=== PATIENT | male | born 1970 | race African-American/Black ===

== ENCOUNTER 2019-11-02 20:42 | Emergency (ER) | payer SELFPAY ==
[~2019-11-02] VITALS: Ht 182.9 cm; Wt 108.9 kg
[2019-11-02 20:45] VITALS: BP 154/84
--- NOTE | 2019-11-02 20:45 | NUR ---
ED Nurse Note: Patient brought into ED by BOBO RA 26 for c/o L shoulder pain. Per BOBO, patient was picked up on the street. Patient is breathing normal and unlabored and has no other complaints at this time. He is aaox4 and ambulatory with steady gait.
--- NOTE | 2019-11-02 20:45 | NUR ---
ED Nurse Note: Patient denies trauma or injury to his L arm/shoulder.
--- NOTE | 2019-11-02 21:18 | NUR ---
ED Nurse Note: Patient began making comments such as "I get bad vibes from you, you look mean and hate black people". Patient became paranoid and not cooperative.
--- NOTE | 2019-11-02 21:20 | NUR ---
ED Nurse Note: Patient refused blood draw by myself stating that I am a racist and I cannot draw his blood. notified.
--- NOTE | 2019-11-02 21:25 | NUR ---
ED Nurse Note: CHAUNCEY Rust came into room to assist with blood draw and as soon as patient saw CHAUNCEY Bergman he stated "Hell no, I'm out of here".
[2019-11-02 21:30] VITALS: BP 154/84
[2019-11-02] MEDS ORDERED: Aspirin Baby 81mg ORAL ONE (21:30)
--- NOTE | 2019-11-02 21:30 | NUR ---
ELOPEMENT: RN went to notify ERMSkylar that patient refused IV and blood draw by myself and CHAUNCEY Bergman again. Upon going back into patient's room, patient eloped. Patient did not speak with MD regarding risks of leaving the ED/ treatment plan. Patient aaox4 and ambulatory with steady gait. He was breathing normal and unlabored, no signs of acute distress.
--- NOTE | 2019-11-02 21:34 | Emergency Room Report ---
History of Present Illness General Chief Complaint: Upper Extremity Injury Source: Patient Present Illness HPI Patient is a 49-year-old male presented for increased left shoulder pain. Pain is worse with movement. Denies any prior history of cardiac disease. States that he felt like his heart was going somewhat fast. Denies any recent trauma. Onset of symptoms earlier in the day. Allergies: Coded Allergies: MORPHINE (Unverified Allergy, Unknown, 11/02/19) COVID-19 Screening Contact w/high risk pt: No Experienced COVID-19 symptoms?: No COVID-19 Testing performed LABORER PRESTRESSED CONCRETE: No Patient History Past Medical History: see triage record Reviewed Nursing Documentation: PMH: Agreed; PSxH: Agreed Nursing Documentation-PMH Hx Hypertension: Yes Hx Asthma: Yes History Of Psychiatric Problem: Yes - PARANOIA Review of Systems All Other Systems: negative except mentioned in HPI Physical Exam Vital Signs Date Time Temp Pulse Resp B/P (MAP) Pulse Ox O2 Delivery O2 Flow Rate FiO2 11/02/19 20:38 98.8 106 16 154/84 (107) 98 Room Air Sp02 EP Interpretation: reviewed, normal General Appearance: normal inspection, well appearing, no apparent distress, alert, GCS 15 Head: atraumatic ENT: normal ENT inspection, hearing grossly normal, normal voice Neck: normal inspection, full range of motion, supple, no bony tend Respiratory: normal inspection, lungs clear, normal breath sounds, no respiratory distress, no retraction, no wheezing Cardiovascular #1: regular rate, rhythm, no edema Gastrointestinal: normal inspection, normal bowel sounds, non tender, soft, no guarding, no hernia Genitourinary: no CVA tenderness Musculoskeletal: normal inspection, back normal, normal range of motion Neurologic: alert, motor strength/tone normal, ssas developer III-XII nml as tested, oriented x3, responsive, speech normal, normal inspection Psychiatric: normal inspection, judgement/insight normal, mood/affect normal Medical Decision Making Diagnostic Impression: Primary Impression: Shoulder pain, left ER Course Patient presented for shoulder pain. Differential diagnosis included but was not limited to acute coronary syndrome, arthritis, rotator cuff injury, dislocation among others. Because of patient's pain I felt that laboratory testing and EKG was indicated. EKG was performed and showed sinus tachycardia with nonspecific T wave changes. Patient refused laboratory testing and further work-up. He stated he wanted to leave immediately. Patient did not appear to be in acute distress. The patient was advised risk benefits alternatives of leaving AGAINST MEDICAL ADVICE and he indicated understanding and all questions are answered patient still continued want to leave and signed AGAINST MEDICAL ADVICE. Despite risks including but not limited to disability and worsening of current lifestyle. Patient agreed and wished to leave the hospital. Patient advised he could return at any time. This medical record is generated with [employer] branch operations manager software. There may be some branch operations manager discrepancies related to use of this software EKG Diagnostic Results Rate: tachycardiac - nsr 111 nonspecific twave changes Last Vital Signs Date Time Temp Pulse Resp B/P (MAP) Pulse Ox O2 Delivery O2 Flow Rate FiO2 11/02/19 20:38 98.8 106 16 154/84 (107) 98 Room Air Status: unchanged Disposition: AGAINST MEDICAL ADVICE Condition: Unknown Referrals: NOT CHOSEN IPA/,REFERRING (PCP) Tre Duarte MD Nov 02, 2019 21:34
--- NOTE | 2019-11-03 14:17 | Cardiology Report ---
APPROVED REPORT EKG Measurement Heart [id number] CT [id number] [id number] <Conclusion> Sinus tachycardia Nonspecific T wave abnormality Abnormal ECG
== END 2019-11-02 21:30 | disposition left against medical advice (07) ==
LOC: EDBD 20:42 → EMR 21:19
DX: M25.512 Pain in left shoulder (principal)
CPT/HCPCS: 93005; 99281